=== PATIENT | male | born 1990 ===

== ENCOUNTER 2021-03-27 15:50 | Emergency (ER) ==
[~2021-03-27] VITALS: Ht 185.4 cm; Wt 84.1 kg
[2021-03-27 15:51] VITALS: BP 126/82
[2021-03-27] MEDS ORDERED: SUBO8MIS SL (16:14)
== END 2021-03-27 16:30 | disposition left against medical advice (07) ==
LOC: M ED 15:50
DX: Z53.21 Procedure and treatment not carried out due to patient leaving prior to being seen by health care provider (principal)